=== PATIENT | male | born 1995 | race African-American/Black ===

== ENCOUNTER 2016-07-27 03:15 | Emergency (ER) | payer OTHER ==
[~2016-07-27] VITALS: Ht 167.6 cm; Wt 99.0 kg
[2016-07-27 03:17] VITALS: BP 142/72; PULSE 89; RESP 16; TEMP 97.7; O2SAT 98
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
[2016-07-27] MEDS ORDERED: KETOROLAC TROMETHAMINE 60 MG/2 ML (IM) VIAL IM ONE (04:15)
[2016-07-27] MEDS ORDERED: ORPHENADRINE INJ 60 MG/2 ML AMP IM ONE (04:15)
[2016-07-27] MEDS ORDERED: BACL10TA PO (04:27)
[2016-07-27] MEDS ORDERED: IBUP800T23 PO (04:27)
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
== END 2016-07-27 05:25 | disposition home or self-care (01) ==
LOC: NEPD 03:15
DX: S16.1XXA Strain of muscle, fascia and tendon at neck level, initial encounter (principal); V43.52XA Car driver injured in collision with other type car in traffic accident, initial encounter; Y93.9 Activity, unspecified; Y92.9 Unspecified place or not applicable; Y99.9 Unspecified external cause status
CPT/HCPCS: 72125; 96372; 99284; J1885; J2360